=== PATIENT | female | born 2000 | race Caucasian/White ===

== ENCOUNTER 2024-09-30 11:10 | Emergency (ER) | payer OTHER ==
[~2024-09-30] VITALS: Ht 170.2 cm; Wt 68.0 kg
[2024-09-30] MEDS ORDERED: FLUOXETINE HCL20 M1 PO (11:55)
[2024-09-30] MEDS ORDERED: RINGERS SOLUTION,LACTATED 1,000 ML IV STA (13:08)
[2024-09-30] MEDS ORDERED: DIPHENHYDRAMINE HCL 50 MG/ML VIAL 1ML IM STA (13:08)
[2024-09-30] MEDS ORDERED: METHYLPREDNISOLONE SOD SUCC 125 MG VIAL IM STA (13:09)
[2024-09-30] MEDS ORDERED: DIPHENHYDRAMINE HCL 50 MG/ML VIAL 1ML IV STA (13:09)
[2024-09-30] MEDS ORDERED: METHYLPREDNISOLONE SOD SUCC 125 MG VIAL IV STA (13:09)
[2024-09-30] MEDS ORDERED: FAMOtidine 10 MG/ML (4ML VIAL) IV PUSH STA (13:10)
[2024-09-30] MEDS ORDERED: EPINEPHRINE HCL/PF 1 MG/ML AMPUL SUBCUTANEO STA (13:10)
[2024-09-30 14:04] LABS: HEMATOCRIT 37.4 % (36.0-45.00); HEMOGLOBIN 13.3 g/dL (12.0-15.00); MEAN CELL VOLUME 89.8 fL (80.00-100.00); MEAN CORPUSCULAR HEMOGLOBIN 31.9 pg (27.00-32.0); MEAN CORPUSCULAR HGB CONC 35.6 g/dl (32.0-36.0); PLATELET COUNT 307 K/uL (150-450); RED BLOOD COUNT 4.16 M/uL (4.00-6.00); RED CELL DISTRIBUTION WIDTH 12.8 % (11.5-14.5)
[2024-09-30 14:40] LABS: ALBUMIN 3.8 gm/dL (3.4-5.0); BILIRUBIN TOTAL 1.07 mg/dL (0.3-1.2); CALCIUM 9.5 mg/dL (8.5-10.1); CREATININE SERUM 0.62 mg/dL (0.55-1.02); GFR 116.35; GLOBULINA 3.5 G/DL (2.4-3.5); POTASSIUM 3.49 mEq/L (3.5-5.1); TOTAL PROTEIN 7.3 gm/dL (6.4-8.2)
== END 2024-09-30 15:42 | disposition home or self-care (01) ==
LOC: ER 11:12
DX: L50.0 Allergic urticaria (principal)